=== PATIENT | female | born 1975 | race Caucasian/White ===

== ENCOUNTER 2018-06-01 10:27 | Emergency (ER) | payer BC ==
--- NOTE | 2018-06-01 10:40 | EDM.PDOC ---
ED HPI GENERAL MEDICAL PROBLEM - General Chief Complaint: Chest Pain Stated Complaint: CHEST PAIN Time Seen by Provider: 06/01/18 10:39 - History of Present Illness INITIAL COMMENTS - FREE TEXT/NARRATIVE: 42-year-old female presents emergency room with chest pain This pain started last evening around 5:00 progressively getting worse it is aggravated by change of position and deep breathing. Patient denies any recent injury or heavy lifting. The pain is not pressure like. She has not had any calf pain or swelling. She does not smoke no high blood pressure no hyperlipidemia. She has had a cold for the last week or so but this is been very mild and seems to be improving. 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 The patient's son who is still in the pediatric age group has a arrhythmia problem the patient's mother prematurely of some sort of heart problem the patient was 17 and doesn't fully understand this. Left Chest Pain Score (Numeric/FACES): 8 - Related Data Allergies Allergy/AdvReac Type Severity Reaction Status Date / Time azithromycin [From Zithromax] Allergy Hives Verified 06/01/18 10:34 codeine Allergy Chest Verified 06/01/18 10:34 Presssure sulfamethoxazole Allergy Rash Verified 06/01/18 10:34 [From Bactrim] trimethoprim [From Bactrim] Allergy Rash Verified 06/01/18 10:34 Home Meds: Home Meds Acetaminophen/HYDROcodone [Golden 325-5 MG] 1 - 2 tab PO Q6H PRN #20 tablet 06/01 [Rx] Naproxen [Naprosyn] 500 mg PO Q12HR #30 tab 06/01/18 [Rx] Past Medical History - Past Surgical History GI Surgical History: Reports: Cholecystectomy Female Surgical History: Reports: Hysterectomy ED ROS GENERAL - Review of Systems Review Of Systems: See Below Constitutional: Denies: Fever, Chills HEENT: Reports: Rhinitis Respiratory: Reports: Pleuritic Chest Pain. Denies: Shortness of Breath, Cough , Sputum Cardiovascular: Reports: Chest Pain Endocrine: Reports: No Symptoms GI/Abdominal: Reports: No Symptoms : Reports: No Symptoms Musculoskeletal: Reports: No Symptoms Skin: Reports: No Symptoms Neurological: Reports: No Symptoms Psychiatric: Reports: No Symptoms ED EXAM, GENERAL - Physical Exam Exam: See Below Exam Limited By: No Limitations General Appearance: Alert, Moderate Distress (She is uncomfortable with this pain) Head: Atraumatic, Normocephalic Neck: Normal Inspection, Supple, Non-Tender, Full Range of Motion Respiratory/Chest: No Respiratory Distress, Lungs Clear, Normal Breath Sounds, Other (Attempted deep breathing makes the chest pain worse) Cardiovascular: Regular Rate, Rhythm, No Edema, No Murmur GI/Abdominal: Normal Bowel Sounds, Soft, Non-Tender Extremities: Normal Inspection, Non-Tender, No Pedal Edema Neurological: Alert, Oriented, Normal Cognition Skin Exam: Warm, Dry, Intact, No Rash Course - Vital Signs Last Recorded V/S: Last Vital Signs Temp 36.2 C 06/01/18 10:34 Pulse 77 06/01/18 10:34 Resp 19 06/01/18 10:34 BP 133/70 06/01/18 10:34 Pulse Ox 99 06/01/18 10:34 - Orders/Labs/Meds Orders: Active Orders 24 hr Category Date Time Status EKG Documentation Completion [RC] STAT Care 06/01/18 10:48 Active Labs: Laboratory Tests 06/01/18 06/01/18 06/01/18 Range/Units 10:10 10:10 10:10 WBC 8.36 (3.98-10.04) K/mm3 RBC 4.86 (3.98-5.22) M/mm3 Hgb 14.4 (11.2-15.7) gm/L Hct 42.9 (34.1-44.9) % MCV 88.3 (79.4-94.8) fl MCH 29.6 (25.6-32.2) pg MCHC 33.6 (32.2-35.5) g/dl RDW Std Deviation 43.4 (36.4-46.3) fL Plt Count 223 (182-369) K/mm3 MPV 9.7 (9.4-12.3) fl Neutrophils % (Manual) 77 H (40-60) % Band Neutrophils % 0 (0-10) % Lymphocytes % (Manual) 21 (20-40) % Atypical Lymphs % 0 % Monocytes % (Manual) 2 (2-10) % Eosinophils % (Manual) 0 L (0.7-5.8) % Basophils % (Manual) 0 L (0.1-1.2) Platelet Estimate Adequate Plt Morphology Comment Normal RBC Morph Comment Normal ESR 29 H (0-20) mm/hr PT 10.8 (9.5-12.1) SECONDS INR 0.99 D-Dimer, Quantitative 0.45 (0.19-0.50) mg/L Sodium (136-145) mEq/L Potassium (3.5-5.1) mEq/L Chloride (98-107) mEq/L Carbon Dioxide (21-32) mEq/L Anion Gap (5-15) BUN (7-18) mg/dL Creatinine (0.55-1.02) mg/dL Est Cr Clr Drug Dosing mL/min Estimated GFR (MDRD) (>60) mL/min BUN/Creatinine Ratio (14-18) Glucose (74-106) mg/dL Calcium (8.5-10.1) mg/dL Total Bilirubin (0.2-1.0) mg/dL AST (15-37) U/L ALT (14-59) U/L Alkaline Phosphatase (46-116) U/L Troponin I (0.00-0.056) ng/mL C-Reactive Protein (<1.0) mg/dL Total Protein (6.4-8.2) g/dl Albumin (3.4-5.0) g/dl Globulin gm/dL Albumin/Globulin Ratio (1-2) 06/01/18 Range/Units 10:10 WBC (3.98-10.04) K/mm3 RBC (3.98-5.22) M/mm3 Hgb (11.2-15.7) gm/L Hct (34.1-44.9) % MCV (79.4-94.8) fl MCH (25.6-32.2) pg MCHC (32.2-35.5) g/dl RDW Std Deviation (36.4-46.3) fL Plt Count (182-369) K/mm3 MPV (9.4-12.3) fl Neutrophils % (Manual) (40-60) % Band Neutrophils % (0-10) % Lymphocytes % (Manual) (20-40) % Atypical Lymphs % % Monocytes % (Manual) (2-10) % Eosinophils % (Manual) (0.7-5.8) % Basophils % (Manual) (0.1-1.2) Platelet Estimate Plt Morphology Comment RBC Morph Comment ESR (0-20) mm/hr PT (9.5-12.1) SECONDS INR D-Dimer, Quantitative (0.19-0.50) mg/L Sodium 142 (136-145) mEq/L Potassium 3.8 (3.5-5.1) mEq/L Chloride 105 (98-107) mEq/L Carbon Dioxide 26 (21-32) mEq/L Anion Gap 14.8 (5-15) BUN 10 (7-18) mg/dL Creatinine 0.9 (0.55-1.02) mg/dL Est Cr Clr Drug Dosing 63.09 mL/min Estimated GFR (MDRD) > 60 (>60) mL/min BUN/Creatinine Ratio 11.1 L (14-18) Glucose 99 (74-106) mg/dL Calcium 9.1 (8.5-10.1) mg/dL Total Bilirubin 0.7 (0.2-1.0) mg/dL AST 21 (15-37) U/L ALT 32 (14-59) U/L Alkaline Phosphatase 87 (46-116) U/L Troponin I < 0.017 (0.00-0.056) ng/mL C-Reactive Protein 1.6 H* (<1.0) mg/dL Total Protein 7.5 (6.4-8.2) g/dl Albumin 4.1 (3.4-5.0) g/dl Globulin 3.4 gm/dL Albumin/Globulin Ratio 1.2 (1-2) Meds: Medications Discontinued Medications Generic Name Dose Route Start Last Admin Trade Name Jacqueline PRN Reason Stop Dose Admin Ketorolac Tromethamine 30 mg 06/01/18 12:05 06/01/18 12:25 Toradol IVPUSH 06/01/18 12:06 30 mg ONETIME ONE Administration Morphine Sulfate 2 mg 06/01/18 10:46 06/01/18 10:56 Morphine IVPUSH 06/01/18 10:47 2 mg ONETIME ONE Administration Morphine Sulfate 2 mg 06/01/18 10:46 06/01/18 11:38 Morphine IVPUSH 06/01/18 10:47 2 mg ONETIME ONE Administration Ondansetron HCl 4 mg 06/01/18 11:01 06/01/18 11:03 Zofran IVPUSH 06/01/18 11:02 4 mg ONETIME ONE Administration - Re-Assessments/Exams Free Text/Narrative Re-Assessment/Exam: 06/01/18 12:41 Chest x-ray unremarkable EKG no acute changes. Labs unrevealing other than her inflammatory markers are up I suspect she's getting pleuritis possibly pericarditis early no EKG changes no cardiomegaly on chest x-ray. Patient's receive a couple doses of morphine 2 mg each with minimal success we'll try Toradol. 06/01/18 13:37 Patient having good improvement with Toradol discussed the pros and cons of further workup including repeat troponin the patient would like to go home at this point. We'll discharge on Naprosyn and hydrocodone Departure - Departure Time of Disposition: 13:37 Disposition: Home, Self-Care 01 Clinical Impression: Pleurisy Prescriptions: Naproxen [Naprosyn] 500 mg PO Q12HR #30 tab Acetaminophen/HYDROcodone [Golden 325-5 MG] 1 - 2 tab PO Q6H PRN #20 tablet PRN Reason: Pain Referrals: Canelo Aguirre MD [Primary Care Provider] - Forms: ED Department Discharge Additional Instructions: Return to the emergency room with any questions problems or worsening symptoms. Recheck in the emergency room, or your regular physician, in 48-72 hours if not improving. Use the Naprosyn twice daily with meals. Take famotidine 20 mg once or twice daily to help protect her stomach from the medication. Use the hydrocodone one or 2 every 6 hours as needed for pain use this mostly at night and allow 12 hours after using this before driving or returning to work. If using hydrocodone on a regular basis add a stool softener as the hydrocodone can cause constipation. - My Orders Last 24 Hours: My Active Orders 06/01/18 10:48 EKG Documentation Completion [RC] STAT - Assessment/Plan Last 24 Hours: My Active Orders 06/01/18 10:48 EKG Documentation Completion [RC] STAT
[2018-06-01] MEDS ORDERED: Morphine 2 MG/ML Syringe IVPUSH ONE ×2 (10:46)
[2018-06-01] MEDS ORDERED: Ondansetron 4 MG/2 ML SDV IVPUSH ONE (11:01)
[2018-06-01] MEDS ORDERED: Ketorolac 30 MG/ML SDV IVPUSH ONE (12:05)
--- NOTE | 2018-06-01 12:20 | CR ---
Chest: Frontall view of the chest was obtained. Comparison: Prior chest x-ray of 09/23/15. Heart size and mediastinum are normal. Lungs are clear without acute parenchymal change. Bony structures are grossly intact. Surgical clips are seen from prior cholecystectomy. Impression: 1. Nothing acute is appreciated on portable chest x-ray. Diagnostic code #1
[2018-06-01 14:07] VITALS: BP 103/63
== END 2018-06-01 14:02 | disposition home or self-care (01) ==
LOC: JD.ED 10:27
DX: R09.1 Pleurisy (principal); Z88.5 Allergy status to narcotic agent; Z88.8 Allergy status to other drugs, medicaments and biological substances; Z88.2 Allergy status to sulfonamides
CPT/HCPCS: 36415; 71045; 80053; 84484; 85007; 85027; 85379; 85610; 85652; 86140; 93005; 96374; 96375; 96376; 99285; J1885; J2270; J2405

== ENCOUNTER 2020-03-19 09:49 | Day surgery (SDC) | payer BC, OTHER ==
--- NOTE | 2020-03-18 09:05 | PCM.SN.2 ---
- Free Text/Narrative Note: Date: 03/19/2020 Time Out: 1033 Start: 1033 Stop: 1044 Surgical Procedure: Left Shoulder Video Arthroscopy, Labral Repair with biceps tenodesis Diagnosis: Strain of muscle, fascia, and tendon of long head of biceps (Left) Current Procedure: Left interscalene block under US guidance for postoperative pain control requested by Dr. Donahue. Patient chart reviewed, risk/benefits discussed with patient, consent obtained. Patient positioned supine, monitors/alarms on, oxygen placed via nasal cannula at 2 LPM. IV sedation administered: Versed 2mg IV, Fentanyl 50mcg IV given in preop prior to block placement. Left shoulder prepped with two chloropreps. Sterile drapes placed with aseptic technique noted. Under US guidance, left subclavian artery visualized along with the left brachial plexus. Plexus followed up to C6 cricoid level, and area localized with 2mls of 1% lidocaine. 22gauge 2 inch stimiplex needle advanced under US with 0.6mV with stimulation of biceps noted. Good stimulation noted with decreased voltage and absent at 0.3mVs. 1ml of Normal Saline injected with loss of stimulation noted to confirm needle not placed intraneurally. Incremental dosing of 5mls with negative aspiration noted prior to each injection of 0.5% ropivacaine with 1:200,000 epinephrine. Total volume=30mls. Please refer to nurses noted for vital signs. Dina Yañez CRNA
--- NOTE | 2020-03-18 09:15 | PCM.PREANE ---
Preanesthetic Assessment - Procedure Proposed Procedure: Left SVA labral repair with biceps tenodesis - Anesthesia/Transfusion/Family Hx Anesthesia History: Prior Anesthesia Without Reaction Family History of Anesthesia Reaction: No Transfusion History: No Prior Transfusion(s) Intubation History: Unknown - Review of Systems General: No Symptoms Pulmonary: No Symptoms (Asthma-does not have an inhaler. ETOH: occasionally) Cardiovascular: No Symptoms (History of decreased blood pressure.) Gastrointestinal: No Symptoms Neurological: No Symptoms (Restless leg syndrome), Headache (migraines: TIA with Migraine ?? in the past 1994,2010) Other: Reports: Easy Bruising - Physical Assessment NPO Status Date: 03/18/20 NPO Status Time: 19:00 Vital Signs: HR:70 Sat:97% Temp:97.6 Resp:16 B/P:107/60 Height: 1.6 m Weight: 87 kg ASA Class: 2 Mental Status: Alert & Oriented x3 Airway Class: Mallampati = 2 Dentition: Reports: Normal Dentition (permanent retainer on top), Caries Thyro-Mental Finger Breadths: 3 Mouth Opening Finger Breadths: 3 ROM/Head Extension: Full Lungs: Clear to Auscultation, Normal Respiratory Effort Cardiovascular: Regular Rate, Regular Rhythm, No Murmurs - Lab Values: Laboratory Last Values SARS-CoV-2 (PCR) Not detected (NOT DETECT) 03/16/20 09:00 All labs reviewed and noted and within acceptable ranges to proceed with scheduled procedure. - Imaging/EKG Impressions: CXR: negative EKG: SR rate=rate=56 - Allergies Allergies/Adverse Reactions: Allergies Allergy/AdvReac Type Severity Reaction Status Date / Time azithromycin [From Zithromax] Allergy Hives Verified 03/18/20 15:53 Sulfa (Sulfonamide Allergy Rash Verified 03/18/20 15:53 Antibiotics) sulfamethoxazole Allergy Rash Verified 03/18/20 15:53 [From Bactrim] trimethoprim [From Bactrim] Allergy Rash Verified 03/18/20 15:53 - Anesthesia Plan Pre-Op Medication Ordered: None - Acknowledgements Anesthesia Type Planned: General Anesthesia (Left ISB under US guidance for post operative pain control requested by Dr. Donahue.) Pt an Appropriate Candidate for the Planned Anesthesia: Yes Alternatives and Risks of Anesthesia Discussed w Pt/Guardian: Yes Pt/Guardian Understands and Agrees with Anesthesia Plan: Yes PreAnesthesia Questionnaire Gastrointestinal History: Reports: None Genitourinary History: Reports: None - Past Surgical History GI Surgical History: Reports: Cholecystectomy Female Surgical History: Reports: Hysterectomy - HOME MEDS Home Medications: Home Meds traZODone HCl [Trazodone HCl] 50 mg PO BEDTIME PRN 03/18/20 [History] Acetaminophen/HYDROcodone [Caret 325-5 MG] 1 - 2 tab PO Q6H PRN #30 tablet 03/19/20 [Rx] Cyclobenzaprine [Flexeril] 10 mg PO BID PRN #20 tab 03/19/20 [Rx] - CURRENT (IN HOUSE) MEDS Current Meds: Current Medications Lactated Ringer's (Ringers, Lactated) 1,000 mls @ 125 mls/hr IV ASDIRECTED ALEXA Stop: 03/19/20 18:00 Lidocaine/Sodium Bicarbonate (Buffered Lidocaine 1% In Ns 8.4%) 0.25 ml IDERM ONETIME PRN PRN Reason: Prior to IV Start Stop: 03/19/20 18:00 Sodium Chloride (Saline Flush) 10 ml FLUSH ASDIRECTED PRN PRN Reason: Keep Vein Open Stop: 03/19/20 18:00
[~2020-03-19 09:49] MED LIST: Dexamethasone 4 MG/ML 5 ML MDV ONE; EPINEPHrine 1 MG/ML SDV ONE; Ketorolac 30 MG/ML SDV ONE; Lactated Ringers 1,000 ML IV SCH; Lactated Ringers 1,000 ML ONE; Lidocaine 1% 2 ML ONE; Lidocaine 1% 4 ML ONE; Lidocaine 1%/Sod Bicarbonate in NS 8.4% 1 ML Syringe IDERM PRN; Midazolam 1 MG/ML 2 ML SDV ONE; Ondansetron 4 MG/2 ML SDV ONE; Propofol 200 MG/20 ML SDV ONE; Rocuronium 50 MG/5 ML Vial ONE; Ropivacaine 0.5% 5 MG/ML 30 ML SDV ONE; Sodium Chloride 0.9% 10 ML Syringe FLUSH PRN; fentaNYL 250 MCG/5 ML SDV ONE
[2020-03-19] MEDS ORDERED: Lidocaine 1% 2 ML ONE (10:38)
[2020-03-19] MEDS ORDERED: diphenhydrAMINE 50 MG/ML SDV IVPUSH PRN (11:51)
[2020-03-19] MEDS ORDERED: fentaNYL 100 MCG/2 ML SDV IVPUSH PRN (11:51)
[2020-03-19] MEDS ORDERED: Ondansetron 4 MG/2 ML SDV IVPUSH PRN (11:51)
[2020-03-19] MEDS ORDERED: ePHEDrine 50 MG/ML SDV IVPUSH PRN (11:51)
[2020-03-19] MEDS ORDERED: Albuterol 0.083% 2.5 MG/3 ML Neb Soln NEB PRN (11:52)
[2020-03-19] MEDS ORDERED: HYDROmorphone 0.5 MG/0.5 ML Syringe IVPUSH PRN (11:52)
[2020-03-19] MEDS ORDERED: HYDROmorphone 0.5 MG/0.5 ML Syringe ONE (12:02)
[2020-03-19] MEDS: EPINEPHrine 1 MG/ML 30 ML MDV IRR SCH ×2 (12:06→12:20)
[2020-03-19] MEDS ORDERED: Labetalol 100 MG/20 ML MDV ONE (12:13)
--- NOTE | 2020-03-19 13:09 | PCM.POSTAN ---
POST ANESTHESIA ASSESSMENT - MENTAL STATUS Mental Status: Alert - VITAL SIGNS Vital Signs: Last Vital Signs Temp 36.4 C 03/19/20 13:04 Pulse 70 03/19/20 13:04 Resp 16 03/19/20 13:04 BP 107/60 03/19/20 13:04 Pulse Ox 97 03/19/20 13:04 - RESPIRATORY Respiratory Status: Respiratory Rate WNL, Airway Patent, O2 Saturation Stable, Supplemental Oxygen - CARDIOVASCULAR CV Status: Pulse Rate WNL, Blood Pressure Stable - GASTROINTESTINAL GI Status: No Symptoms - POST OP HYDRATION Hydration Status: Adequate & Stable
[2020-03-19] MEDS ORDERED: Meperidine 50 MG/ML Vial IVPUSH PRN (13:11)
--- NOTE | 2020-03-19 13:27 | PCM48HPAN ---
Post Anesthesia Note - EVALUATION WITHIN 48HRS OF ANESTHETIC Vital Signs in Normal Range: Yes Patient Participated in Evaluation: Yes Respiratory Function Stable: Yes Airway Patent: Yes Cardiovascular Function Stable: Yes Hydration Status Stable: Yes Pain Control Satisfactory: Yes Nausea and Vomiting Control Satisfactory: Yes Mental Status Recovered: Yes Vital Signs: Last Vital Signs Temp 36.6 C 03/19/20 13:04 Pulse 70 03/19/20 11:19 Resp 9 L 03/19/20 13:15 BP 113/85 03/19/20 13:15 Pulse Ox 100 03/19/20 13:22
[2020-03-19 16:16] VITALS: BP 105/70; PULSE 76
--- NOTE | 2020-03-27 07:46 | PCM.OPNOTE ---
- General Post-Op/Procedure Note Date of Surgery/Procedure: 03/19/20 Operative Procedure(s): left shoulder video arthroscopy wtih biceps tenodesis, SLAP repair, and extensive debridement Pre Op Diagnosis: Left shoulder SLAP tear with biceps tendinopathy Post-Op Diagnosis: Same Anesthesia Technique: General ET Tube, Regional Block Primary Surgeon: Yemi Donahue Anesthesia Provider: Dina Yañez Dental Associate: Josefina Harris in mLs: 5 Complications: None Condition: Good
--- NOTE | 2020-03-31 06:08 | OR ---
DATE OF OPERATION: 03/19/2020 SURGEON: Yemi Donahue MD OPERATION PERFORMED: Left shoulder video arthroscopy, biceps tenodesis, SLAP repair, and extensive debridement. PREOPERATIVE DIAGNOSIS: Left shoulder SLAP tear with biceps tendinopathy. POSTOPERATIVE DIAGNOSIS: Left shoulder SLAP tear with biceps tendinopathy. ANESTHESIA: General endotracheal intubation with regional interscalene block. ANESTHESIA PROVIDER: Dina Yañez CRNA COOK FRUIT: Josefina Harris PA-C ESTIMATED BLOOD LOSS: 5 mL. COMPLICATIONS: None. CONDITION: Stable. DESCRIPTION OF PROCEDURE: The patient was identified in the preoperative holding area where proper site was marked and identified by the surgeon. The patient was taken back to the operating theater where after adequate anesthesia, the patient was placed in a lazy right lateral decubitus position. Wedge was placed posteriorly. The patient was secured to the table. Bony prominences were well padded. The patient's left upper extremity was then sterilely prepped and draped in the usual sterile fashion. OR time-out was performed. The patient received 2 g IV Ancef and 12 pounds of traction was applied to the left upper extremity. At this time, standard posterior incision was made. Scope trocar was introduced to the glenohumeral joint. At this time, with the use of a spinal needle, anterior portal was created with outside-in technique. The patient was noted to have significant type 2 SLAP tear with complete peel back of the superior labrum with significant biceps tendinopathy noted. She was also noted to have significant synovitis as well as minor amount of chondromalacia of the glenoid. At this time, synovitis as well as debridement was done of the superior rim of the glenoid back to a good bony bleeding bed. Three Arthrex FiberWires were then placed superiorly and 3 Arthrex 2.7 mm PushLock anchors were placed. A biceps tenodesis was then performed and a #2 FiberWire was placed through the biceps tendon and it was tenotomized for later tenodesis in the rotator interval. At this time, it had good repair of the superior labral tear. Subscapularis tendon was intact. The undersurface of the rotator cuff was intact. Scope trocar was then placed in the subacromial space and a significant extensive debridement was then done of the subacromial space as well as significant bursitis she had in the subacromial space. The biceps tendon sutures were identified and were tied in the rotator interval for soft tissue tenodesis. At this time, the rotator cuff was intact. Excess saline was drained from the shoulder. 3-0 nylon suture was used for closure of the portal incisions. The patient was placed in a sterile soft dressing and a pillow sling and sent to PACU in stable condition. GUALBERTO /[id number]
== END 2020-03-19 16:04 | disposition home or self-care (01) ==
LOC: JD.SDS 09:49
PROVIDERS: ATTEND Orthopaedic Surgery
DX: S43.432A Superior glenoid labrum lesion of left shoulder, initial encounter (principal); M67.814 Other specified disorders of tendon, left shoulder; Z01.812 Encounter for preprocedural laboratory examination; Z20.828 Contact with and (suspected) exposure to other viral communicable diseases; Z88.2 Allergy status to sulfonamides; Z88.8 Allergy status to other drugs, medicaments and biological substances; X58.XXXA Exposure to other specified factors, initial encounter
CPT/HCPCS: 29807; 29828; 87635; C1713; J0171; J1100; J1170; J1885; J2001; J2250; J2405; J2704; J2710; J2795; J3010; J3490; J7120; 01630; 64415; J2370; U0002

== ENCOUNTER 2020-07-28 15:11 | Emergency (ER) | payer BC, OTHER ==
[2020-07-28 15:39] VITALS: BP 124/59; PULSE 60
[2020-07-28] MEDS ORDERED: diphenhydrAMINE 50 MG/ML SDV IM ONE (15:44)
[2020-07-28] MEDS ORDERED: Ketorolac 60 MG/2 ML SDV IM ONE (15:44)
[2020-07-28] MEDS ORDERED: Metoclopramide 10 MG/2 ML SDV IM ONE (15:44)
--- NOTE | 2020-07-28 15:58 | EDM.PDOC ---
ED HPI GENERAL MEDICAL PROBLEM - General Chief Complaint: Headache Stated Complaint: R EYE PAIN/HEADACHE/R SIDE OF FACE NUMB Time Seen by Provider: 07/28/20 15:35 Source of Information: Reports: Patient, RN Notes Reviewed History Limitations: Reports: No Limitations - History of Present Illness INITIAL COMMENTS - FREE TEXT/NARRATIVE: Patient is a 44-year-old female who presents to the ED for her headache. Patient notes she has a history of migraines however this seemed somewhat different from her typical migraines. She stated at around 2:30 PM this afternoon, she was working at school, and she started getting tunnel vision and blurry vision into both eyes but her left eye seem to be a little bit worse. She became concerned because she felt like she was going to pass out. She did not notice any sort of palpitations and her heart, or any other symptoms during this time. She notes now that her right eye has some pressure behind it mainly along with right arm and right facial tingliness. She notes that it just feels like her right arm fell asleep. She states that she has had migraines that mimic strokelike symptoms, when she was 14, and again a roughly 9 years ago. She notes that today she is sensitive to light as well. She notes for her typical migraine she would see "squiggly lines" she did not see this today and again was concerned about the blurred vision. She did note she come to the ER at one point, she was given some medications and this seemed to resolve her symptoms. Patient is exhibiting no obvious neuro deficits at this time. She did not take any medication prior to coming to the ER. Patient's primary care provider is Dr. Palmer. She denies any fevers or chills, cough, shortness of breath, nausea/vomiting/diarrhea. Right Headache Pain Score (Numeric/FACES): 7 - Related Data Allergies Allergy/AdvReac Type Severity Reaction Status Date / Time azithromycin [From Zithromax] Allergy Hives Verified 07/28/20 15:39 Sulfa (Sulfonamide Allergy Rash Verified 07/28/20 15:39 Antibiotics) sulfamethoxazole Allergy Rash Verified 07/28/20 15:39 [From Bactrim] trimethoprim [From Bactrim] Allergy Rash Verified 07/28/20 15:39 Home Meds: Home Meds traZODone HCl [Trazodone HCl] 50 mg PO BEDTIME PRN 03/18/20 [History] SUMAtriptan [Imitrex] 50 mg PO ASDIRECTED PRN #4 tablet MDD 200 07/28/20 [Rx] Past Medical History HEENT History: Reports: Impaired Vision Respiratory History: Reports: Asthma, Other (See Below) Other Respiratory History: reactive airway disease ED PHYSICIANS History: Reports: Other (See Below) Other ED PHYSICIANS History: breast cyst removals Musculoskeletal History: Reports: Other (See Below) Other Musculoskeletal History: restless leg syndrome, shoulder pain Neurological History: Reports: Migraines (that seem to mimic stroke symptoms) Endocrine/Metabolic History: Reports: Obesity/BMI 30+ - Past Surgical History HEENT Surgical History: Reports: Tonsillectomy GI Surgical History: Reports: Cholecystectomy, Other (See Below) Other GI Surgeries/Procedures: gastric sleeve Apr 2020 Female Surgical History: Reports: Hysterectomy Social & Family History - Family History Family Medical History: No Pertinent Family History - Caffeine Use Caffeine Use: Reports: Coffee ED ROS GENERAL - Review of Systems Review Of Systems: Comprehensive ROS is negative, except as noted in HPI. - Physical Exam Exam: See Below Exam Limited By: No Limitations General Appearance: Alert, WD/WN, No Apparent Distress Eye Exam: Bilateral Eye: EOMI, Normal Inspection, PERRL Respiratory/Chest: No Respiratory Distress, Lungs Clear, Normal Breath Sounds, N o Accessory Muscle Use, Chest Non-Tender Cardiovascular: Normal Peripheral Pulses, Regular Rate, Rhythm, No Edema Neuro Exam (Abbreviated): Alert, Oriented, Normal Cognition, No Motor/Sensory Deficits Extremities: Normal Inspection, Normal Capillary Refill Psychiatric: Normal Affect, Normal Mood Skin Exam: Warm, Dry, Intact, Normal Color, No Rash Course - Vital Signs Last Recorded V/S: Last Vital Signs Temp 98.7 F 07/28/20 15:32 Pulse 60 07/28/20 15:32 Resp 18 07/28/20 15:32 BP 124/59 L 07/28/20 15:32 Pulse Ox 99 07/28/20 15:32 - Orders/Labs/Meds Meds: Medications Discontinued Medications Generic Name Dose Route Start Last Admin Trade Name Freq PRN Reason Stop Dose Admin Diphenhydramine HCl 25 mg 07/28/20 15:44 07/28/20 15:56 Benadryl IM 07/28/20 15:45 25 mg ONETIME ONE Administration Ketorolac Tromethamine 60 mg 07/28/20 15:44 07/28/20 15:56 Toradol IM 07/28/20 15:45 60 mg ONETIME ONE Administration Metoclopramide HCl 10 mg 07/28/20 15:44 07/28/20 15:56 Reglan IM 07/28/20 15:45 10 mg ONETIME ONE Administration Sumatriptan Succinate 6 mg 07/28/20 16:23 07/28/20 16:29 Imitrex SUBCUT 07/28/20 16:24 6 mg ONETIME ONE Administration - Re-Assessments/Exams Free Text/Narrative Re-Assessment/Exam: 07/28/20 15:58 Patient presents to the ED for her headache. We will go ahead and give her IM Toradol, Benadryl, Reglan for initial management. I did discuss the patient use of sumatriptan if this medication combo does not work along with the possible head CT, patient is amenable to this plan at this time. 07/28/20 16:23 Patient was reassessed at bedside, states that she still has some pain behind her right eye. We will go ahead and give her a injection of sumatriptan to see if this helps relieve her symptoms. 07/28/20 17:18 Patient noted relief of her symptoms with the sumatriptan, I will go ahead and give her a few doses of this for ongoing migraine management and I will have her follow-up with her primary care for continuation. Departure - Departure Time of Disposition: 17:21 Disposition: Home, Self-Care 01 Condition: Good Clinical Impression: Migraine Qualifiers: Migraine type: with aura Status migrainosus presence: without status migrainosus Intractability: not intractable Qualified Code(s): G43.109 - Migraine with aura, not intractable, without status migrainosus - Discharge Information *PRESCRIPTION DRUG MONITORING PROGRAM REVIEWED*: No *COPY OF PRESCRIPTION DRUG MONITORING REPORT IN PATIENT TOM: No Instructions: Migraine Headache, [id number] Referrals: Canelo Aguirre MD [Primary Care Provider] - Forms: ED Department Discharge Additional Instructions: You were evaluated in the ED for your headache. You were given a combination of medications for management. This did seem to provide you pretty good relief of your symptoms. Sumatriptan seemed to provide you the most relief of your migraine symptoms. You were given a prescription for sumatriptan, you may take 1 tablet at the onset of a headache, and repeat the dosing in 2 hours if the first tablet did not take the headache away completely. Do not exceed 200 mg in a 24-hour time span. Recommend that you go home and rest in a quiet, darkened room. Try also to keep well hydrated. You will need to follow-up with your regular care provider, for continuation of sumatriptan if you find it is of benefit for your migraine headaches. Please return to the ED if your symptoms should change or worsen. Sepsis Event Note (ED) - Evaluation Sepsis Screening Result: No Definite Risk - Focused Exam Vital Signs: Vital Signs Temp Pulse Resp BP Pulse Ox 07/28/20 15:32 98.7 F 60 18 124/59 L 99
[2020-07-28] MEDS ORDERED: SUMAtriptan 6 MG/0.5 ML SDV SUBCUT ONE (16:23)
== END 2020-07-28 17:30 | disposition home or self-care (01) ==
LOC: JD.ED 15:11
DX: G43.109 Migraine with aura, not intractable, without status migrainosus (principal); J45.909 Unspecified asthma, uncomplicated; E66.9 Obesity, unspecified; Z68.32 Body mass index [BMI] 32.0-32.9, adult; Z88.1 Allergy status to other antibiotic agents; Z88.2 Allergy status to sulfonamides
CPT/HCPCS: 96372; 99283; J1200; J1885; J2765; J3030

== ENCOUNTER 2023-09-14 13:10 | Emergency (ER) | payer BC ==
[2023-09-14] MEDS: Alum Hydrox/Mag Hydrox/Simeth 30 ML, Lidocaine 2% 15 ML PO ONE (14:17)
[2023-09-14] MEDS: Pantoprazole 40 MG Vial IVPUSH ONE (14:30)
[2023-09-14] MEDS: Sodium Chloride 0.9% 10 ML Syringe FLUSH PRN ×2 (14:33→14:48)
[2023-09-14 14:46] LABS: BASOPHILS PERCENT AUTO 0.5 % (0.0-1.0); EOSINOPHILS PERCENT AUTO 0.2 % (0.0-6.0); HEMOGLOBIN 14.7 gm/dl (12.0-16.0); IMMATURE GRAN ABSOLUTE AUTO 0.02 K/mm3 (0.00-0.05); IMMATURE GRAN PERCENT AUTO 0.3 % (0.0-0.4); LYMPHOCYTES ABSOLUTE AUTO 2.2 K/mm3 (1.0-4.8); LYMPHOCYTES PERCENT AUTO 32.6 % (24.0-44.0); MEAN CORPUSCULAR HGB CONC 32.7 g/dl (32.0-36.0); MEAN CORPUSCULAR VOLUME 91.8 fl (83.0-99.0); MEAN PLATELET VOLUME 9.9 fl (9.4-12.3); MONOCYTES ABSOLUTE AUTO 0.3 K/mm3 (0.0-0.8); MONOCYTES PERCENT AUTO 4.8 % (0.0-8.0); NEUTROPHILS ABSOLUTE AUTO 4.1 K/mm3 (1.8-7.7); NEUTROPHILS PERCENT AUTO 61.6 % (41.0-71.0); PLATELET COUNT,PLT 195 K/mm3 (150-400); WHITE BLOOD CELL COUNT,WBC 6.66 K/mm3 (3.9-11.3)
[2023-09-14] MEDS: Iopamidol 612 MG/ML 100 ML Bottle IVPUSH ONE (14:48)
[2023-09-14] MEDS: Iopamidol 612 MG/ML 30 ML SDV IVPUSH ONE (14:48)
[2023-09-14 15:23] LABS: A/G RATIO 1.6 (1-2); ALANINE AMINOTRANSFERASE,ALT 26 U/L (14-59); ALBUMIN 4.4 g/dl (3.4-5.0); ALKALINE PHOSPHATASE 59 U/L (46-116); ANION GAP 13.5 (5-15); ASPARTATE AMNIOTRANSFERASE,AST 23 U/L (15-37); BILIRUBIN TOTAL 0.5 mg/dL (0.2-1.0); BLOOD UREA NITROGEN,BUN 16 mg/dL (7-18); CALCIUM 9.6 mg/dL (8.5-10.1); CARBON DIOXIDE,CO2 27 mEq/L (21-32); CHLORIDE,CL 101 mEq/L (98-107); CREATININE 0.8 mg/dL (0.55-1.02); EST CRCL DRUG DOSING (CG) 70.37 mL/min; ESTIMATED GFR 90 mL/min (>60); GLUCOSE RANDOM 79 mg/dL (70-99); MAGNESIUM 2.1 mg/dL (1.8-2.4); POTASSIUM,K 3.5 mEq/L (3.5-5.1); PROTEIN TOTAL,TP 7.2 g/dl (6.4-8.2); SODIUM,NA 138 mEq/L (136-145)
[2023-09-14 15:33] LABS: TROPONIN I HIGH SENSITIVITY < 4 pg/mL (<=51)
[2023-09-14 16:42] VITALS: BP 132/79; PULSE 79
== END 2023-09-14 16:42 | disposition home or self-care (01) ==
LOC: JD.ED 13:10
DX: R13.10 Dysphagia, unspecified (principal); M54.6 Pain in thoracic spine; Z88.1 Allergy status to other antibiotic agents; Z88.2 Allergy status to sulfonamides; Z79.899 Other long term (current) drug therapy; Z90.49 Acquired absence of other specified parts of digestive tract; Z90.710 Acquired absence of both cervix and uterus
CPT/HCPCS: 36415; 71260; 74177; 80053; 83735; 84484; 85025; 96374; 99284; A9270; C9113; J3490; Q9967